=== PATIENT | female | born 1975 | race Caucasian/White ===

== ENCOUNTER 2017-06-04 14:10 | Emergency (ER) | payer MEDICAID ==
[~2017-06-04] VITALS: Ht 157.5 cm; Wt 150.0 kg
[~2017-06-04 14:10] MED LIST: ATEN-51 PO; DOCU-144 PO; FER325 PO
[2017-06-04 14:16] VITALS: Ht 157.5 cm; Wt 150.0 kg
[2017-06-04] MEDS ORDERED: KETOROLAC 30 MG INJ IM STA (16:20)
--- NOTE | 2017-06-04 17:35 | RADRPT ---
PROCEDURE: XR Hip. CLINICAL INDICATION: Pain TECHNIQUE: AP and frog lateral views of the right hip were performed. COMPARISON: None. FINDINGS: Two views of the right hip demonstrate no displaced fracture. Femoral head articulates anatomically with the acetabulum. There is no significant degenerate change. The bones are normally mineralize d. The soft tissues are unremarkable. IMPRESSION: 1. No acute fracture dislocation. 2. No significant degenerate change. RPTAT: HH .Jani Barnard MD, Date Time Electronically viewed and signed by .Jani Barnard MD, on 06/04/2017 17:35 .W/
[2017-06-04] MEDS ORDERED: HYDR-906 PO (17:43)
[2017-06-04] MEDS ORDERED: IBUP-1542 PO (17:43)
--- NOTE | 2017-06-04 17:46 | ERD ---
ER Documentation Chief Complaint Chief Complaint Complains of right leg pain after a fall HPI Patient is a 41-year-old female presents ED for concerns of right posterior leg pain after a trip and fall injury earlier today. Patient states she was at a cousin's house when she had slipped on a piece of plastic on the ground and fell onto her right leg. Patient states that she is pain with ambulating. Patient states she took Tylenol prior to arrival. Patient denies any chest pain, shortness of breath, back pain, saddle anesthesia, urinary incontinence, stool incontinence. Patient denies any head injury, headache, blurry vision, nausea, vomiting, acute confusion, excessive sleepiness or loss of consciousness. Patient denies any previous fractures or dislocations. ROS All systems reviewed and are negative except as per history of present illness. Medications Home Meds Active Scripts Hydrocodone/Acetaminophen (Pearl 5-325 Tablet) 1 Each Tablet, 1 TAB PO Q6H Y for PAIN, #10 TAB Prov:GUS CRUZ PA-C 06/04/17 Ibuprofen* (Motrin*) 600 Mg Tab, 600 MG PO Q6, #30 TAB Prov:GUS CRUZ PA-C 06/04/17 Atenolol* (Atenolol*) 25 Mg Tablet, 25 MG PO DAILY, #14 TAB Prov:XIANG GARCIA PA-C 07/11/15 Docusate Sodium* (Colace*) 100 Mg Capsule, 100 MG PO TID, #30 CAP Prov:XIANG GARCIA PA-C 07/11/15 Ferrous Sulfate* (Ferrous Sulfate*) 325 Mg Tabec, 325 MG PO DAILY, #30 TAB Prov:XIANG GARCIA PA-C 07/11/15 Allergies Allergies: Coded Allergies: No Known Allergy (Unverified , 07/11/15) PMhx/Soc Medical and Surgical Hx: pt denies Medical Hx, pt denies Surgical Hx History of Surgery: No Anesthesia Reaction: No Hx Neurological Disorder: No Hx Respiratory Disorders: No Hx Cardiac Disorders: No Hx Psychiatric Problems: No Hx Miscellaneous Medical Probl: No Hx Alcohol Use: No Hx Substance Use: No Hx Tobacco Use: No Smoking Status: Never smoker Physical Exam Vitals Vital Signs Date Time Temp Pulse Resp B/P Pulse Ox O2 Delivery O2 Flow Rate FiO2 12/15/17 22:10 97.9 94 20 189/104 100 Room Air 06/04/17 20:33 98.1 90 18 213/109 Room Air 06/04/17 19:30 98.1 94 18 213/105 100 Room Air 06/04/17 14:16 99.2 101 20 177/108 98 Physical Exam GENERAL: Obese. Appears in no acute distress. HEAD: Normocephalic, atraumatic. EYES: Pupils are equally reactive bilaterally. EOMs grossly intact. No conjunctival erythema. ENT: Moist mucous membranes. No uvula deviation. No kissing tonsils. NECK: Supple. No meningismus. Normal range of motion of the neck. No cervical midline tenderness. LUNG: Clear to auscultation bilaterally. No rhonchi, wheezing, rales or coarse breath sounds. HEART: Regular rate and rhythm. No murmurs, rubs or gallops. BACK: No midline tenderness. HIP: Tender to palpation of R hip. No obvious ecchymosis, swelling or erythema. EXTREMITIES: Equal pulses bilaterally. No peripheral clubbing, cyanosis or edema. No unilateral leg swelling. NEUROLOGIC: Alert and oriented. Moving all four extremities without any difficulty. Normal speech. Steady gait. Able to bear weight to affected extremity. SKIN: Normal color. Warm and dry. No rashes or lesions. RIGHT LEG: No deformity, erythema, ecchymosis or swelling. Skin intact. Tender to palpation of posterior thigh with minimal palpation. Nontender palpation of the anterior knee. Sensation intact to light touch. Neurovascularly intact. 2+ DP pulses. Results 24 hrs Current Medications Medications (Trade) Dose Ordered Sig/Adan Route PRN Reason Start Time Stop Time Status Last Admin Dose Admin Ketorolac Tromethamine (Toradol) 30 mg ONCE STAT IM 06/04/17 16:20 06/04/17 16:22 DC 06/04/17 16:51 Nicardipine HCl (Cardene) 30 mg ONCE ONCE PO 06/04/17 19:30 06/04/17 19:31 DC 06/04/17 19:21 Acetaminophen/ Hydrocodone Bitart (Pearl (10/325)) 1 tab ONCE ONCE PO 06/04/17 21:00 06/04/17 21:01 DC 06/04/17 21:37 Procedures/MDM ED COURSE: The patient was stable throughout ED course. I kept the patient and/or family informed of laboratory and diagnostic imaging results throughout the ED course. DIAGNOSTIC IMAGING: Read by radiologist. DIAGNOSTIC IMAGING REPORT Patient: LEYDA MARTINEZ : 1975 Age: 41 Sex: F MR #: [id number] DOS: 06/04/17 1621 Ordering MD: GUS CRUZ PA-C Location: [facility] Room/Bed: PROCEDURE: XR Hip. CLINICAL INDICATION: Pain TECHNIQUE: AP and frog lateral views of the right hip were performed. COMPARISON: None. FINDINGS: Two views of the right hip demonstrate no displaced fracture. Femoral head articulates anatomically with the acetabulum. There is no significant degenerate change. The bones are normally mineralized. The soft tissues are unremarkable. IMPRESSION: 1. No acute fracture dislocation. 2. No significant degenerate change. RPTAT: HH .Jani Barnard MD, MD Date Time Electronically viewed and signed by .Jani Barnard MD, on 06/04/2017 17:35 .W/ CC: GUS CRUZ PA-C Patient: LEYDA MARTINEZ : 1975 Age: 41 Sex: F MR #: [id number] DOS: 06/04/17 1621 Ordering MD: GUS CRUZ PA-C Location: [facility] Room/Bed: PROCEDURE: Right tibia and fibula series CLINICAL INDICATION: Right leg pain. Fall TECHNIQUE: AP and lateral views of the right tibia and fibula were obtained. COMPARISON: None FINDINGS: No acute fracture or dislocations are seen. The osseous structures are well mineralized. No soft tissue abnormalities are seen. A dorsal calcaneal spur is seen. IMPRESSION: No evidence of an acute abnormality. RPTAT: HPNM Physician Quin Date Time Electronically viewed and signed by Physician Quin on 06/04/2017 18 :56 / CC: GUS CRUZ PA-C PROCEDURES: None. MEDICATIONS GIVEN: Toradol IM Patient tolerated medication well with no adverse reactions. Patient reported improvement in pain. MEDICAL DECISION MAKING: This is a 41 year old female who presents with right posterior leg pain after a trip and fall injury earlier today. Patient denies any head injury, nausea, vomiting, loss of consciousness. Vital signs were reviewed. Patient was afebrile. Blood pressure was noted to be elevated at initial presentation. X- ray imaging of the right hip and right tibia/fibula are unremarkable. Patient is given Toradol here in the ED after negative test. At this time, patient's presentation is most consistent with right upper leg pain. Unable to rule out any tendon or ligament injuries at this time. Patient may have a muscle strain. Low suspicion for femur fracture, pelvic fracture, dislocation, septic arthritis, osteomyelitis, avascular necrosis, DVT or compartment syndrome. Patient was given a copy of all imaging studies obtained today. Patient was advised that she may need to follow-up with an neuroscience specialist and/or obtain MRI imaging on an outpatient basis if the pain persists. Supportive measures and NSAIDs were advised. Prior to discharge to nursing staff, notified me that the patient's blood pressure was elevated. Patient stated that she did not have a history of hypertension. Patient continued to deny any chest pain, shortness of breath, headache, blurry vision, nausea, vomiting or diaphoresis. Patient was given Cardene 30 mg PO. Patient was signed out to OYSTER PICKER, Kamla Montano, pending vital recheck/ BP recheck. Low suspicion for hypertensive emergency or end organ failure. I had discussion with the patient about the risks of hypertension. I have advised the patient to follow up with his/her primary care physician for outpatient monitoring and treatment for hypertension in 2-3 days. I have instructed the patient to return to the ER for any new or worsening symptoms including chest pain, shortness of breath, headache, blurred vision, confusion, nausea, vomiting or LOC. Patient was stable at time of signout. DISCHARGE: I have instructed the patient to follow-up with his/her primary care physician in 1-2 days. I have discussed with the patient the possibility of needing to see a specialist for further workup and imaging studies if symptoms persist. I have instructed the patient to promptly return to the ER for any new or worsening symptoms including increased pain, fever, nausea, vomiting, weakness or LOC. The patient and/or family expressed understanding of and agreement with this plan. All questions were answered. Home care instructions were provided. Departure Diagnosis: Primary Impression: Right leg pain Additional Impression: High blood pressure Hypertension type: unspecified Qualified Code: I10 - Hypertension, unspecified type Condition: Stable Patient Instructions: Possible Causes of Low Back or Leg Pain Referrals: [facility] YOU HAVE RECEIVED A MEDICAL SCREENING EXAM AND THE RESULTS INDICATE THAT YOU DO NOT HAVE A CONDITION THAT REQUIRES URGENT TREATMENT IN THE EMERGENCY DEPARTMENT. FURTHER EVALUATION AND TREATMENT OF YOUR CONDITION CAN WAIT UNTIL YOU ARE SEEN IN YOUR DOCTORS OFFICE WITHIN THE NEXT 1-2 DAYS. IT IS YOUR RESPONSIBILITY TO MAKE AN APPOINTMENT FOR FOLOW-UP CARE. IF YOU HAVE A PRIMARY DOCTOR --you should call your primary doctor and schedule an appointment IF YOU DO NOT HAVE A PRIMARY DOCTOR YOU CAN CALL OUR PHYSICIAN REFERRAL HOTLINE AT IF YOU CAN NOT AFFORD TO SEE A PHYSICIAN YOU CAN CHOSE FROM THE FOLLOWING [facility] [address] [facility]. [facility] [address] [facility] [facility] [address] [facility] [facility] [address] [facility] [facility] [facility] [address] [facility]. [facility]. [address] [facility]. [facility] YOU HAVE RECEIVED A MEDICAL SCREENING EXAM AND THE RESULTS INDICATE THAT YOU DO NOT HAVE A CONDITION THAT REQUIRES URGENT TREATMENT IN THE EMERGENCY DEPARTMENT. FURTHER EVALUATION AND TREATMENT OF YOUR CONDITION CAN WAIT UNTIL YOU ARE SEEN IN YOUR DOCTORS OFFICE WITHIN THE NEXT 1-2 DAYS. IT IS YOUR RESPONSIBILITY TO MAKE AN APPOINTMENT FOR FOLOW-UP CARE. IF YOU HAVE A PRIMARY DOCTOR --you should call your primary doctor and schedule and appointment IF YOU DO NOT HAVE A PRIMARY DOCTOR YOU CAN CALL OUR PHYSICIAN REFERRAL HOTLINE AT . IF YOU CAN NOT AFFORD TO SEE A PHYSICIAN YOU CAN CHOSE FROM THE FOLLOWING [facility] INSTITUTIONS: [facility] [address] [place] [address] [facility] [address] [place] [address] [facility] [address] [place] [address] [facility] Hours: Mon-Wed 9:00 AM - 5:00 PM Additional Instructions: Call your primary care doctor TOMORROW for an appointment during the next 1-2 days.See the doctor sooner or return here if your condition worsens before your appointment time. Unable to rule out any ligament or tendon injuries. Follow-up with your primary care physician for referral to an neuroscience specialist. You may need an MRI an outpatient basis. Put ice on the affected area. Do not take Pearl when driving. GUS CRUZ PA-C Jun 04, 2017 17:46
--- NOTE | 2017-06-04 18:56 | RADRPT ---
PROCEDURE: Right tibia and fibula series CLINICAL INDICATION: Right leg pain. Fall TECHNIQUE: AP and lateral views of the right tibia and fibula were obtained. COMPARISON: None FINDINGS: No acute fracture or dislocations are seen. The osseous structures are well mineralized. No soft ti ssue abnormalities are seen. A dorsal calcaneal spur is seen. IMPRESSION: No evidence of an acute abnormality. RPTAT: HPNM Physician Quin Date Time Electronically viewed and signed by Edward Epstein Physician on 06/04/2017 18:56 /
[2017-06-04] MEDS ORDERED: NICARDipine HCL 30 MG CAPSULE PO ONE (19:30)
[2017-06-04] MEDS ORDERED: HYDROCODONE/APAP (10/325) TAB PO ONE (21:00)
[2017-06-04 22:10] VITALS: BP 189/104; PULSE 94; RESP 20; TEMP 97.9
--- NOTE | 2017-06-04 22:25 | QN ---
Documentation Comment I have received report from Damaso this 41-year-old female presents ED for concerns of right posterior leg pain after a trip and fall injury earlier today. She has remained in emergency department for blood pressure elevation 200 systolic. Patient receives calcium channel myranda by physician research program assistant with little change in symptoms, I have added 10 mg of [place] for pain, blood pressure reduction 177/108, patient will be discharged home to follow-up with her primary care physician. LAKSHMI LEPE Jun 04, 2017 22:25
== END 2017-06-04 22:45 | disposition home or self-care (01) ==
LOC: FTE 14:10
DX: M79.604 Pain in right leg (principal); I10 Essential (primary) hypertension
CPT/HCPCS: 73510; 73590; 96372; J1885; Z7502; Z7610

== ENCOUNTER 2018-02-16 02:15 | Inpatient (IN) | END 2018-02-16 16:51 | disposition home or self-care (01) | DRG 305 ==